=== PATIENT | female | born 1990 | race African-American/Black ===

== ENCOUNTER 2018-04-18 11:48 | Inpatient (IN) ==
[2018-04-18] MEDS: DEXTROSE 5% LACTATED RINGERS 1,000 ML IV SCH ×2 (12:49→18:12)
[2018-04-18] MEDS: ONDANSETRON 4 MG/2 ML VIAL IV SCH ×3 (12:49→23:47)
[2018-04-18] MEDS: METOCLOPRAMIDE 10 MG/2 ML VIAL IV SCH ×2 (12:51→21:13)
[2018-04-18 13:26] LABS: Apearance,Urine CLOUDY (Clear); Bacteria,Urine Many /HPF (Few); Bilirubin,Urine Small mg/dL (Negative); Blood, Urine Negative (Negative); Calcium Oxalate Crystals,Urine Moderate /HPF (Few); Glucose,Urine (UA) Negative (Negative); Ketones,Urine 5 mg/dL (Negative); Mucus,Urine Many /LPF (Occasional); Nitrite,Urine Negative (Negative); Protein,Urine 100 MG/DL; Squamous Epithelial Cell,Urine Few /HPF (0-10); Urine Color Amber (Yellow); Urine Specific Gravity 1.023 (1.001-1.035); WBC,Urine 15 /HPF (0-6)
[2018-04-18 13:27] LABS: Barbiturates Screen,Urine Negative (Negative); Benzodiazepines Screen,Urine Negative (Negative); Cannabinoid Screen,Urine Positive (Negative); Opiate Screen,Urine Negative (Negative); Phencyclidine Screen,Urine Negative (Negative)
[2018-04-18 13:37] LABS: Basophils % 0.2 % (0.0-0.8); Eosinophils # 0.1 10*3/uL (0.0-0.87); Eosinophils % 2.1 % (0.00-10.9); Hematocrit 33.4 VOL% (35.7-47.0); Hemoglobin 11.7 GM/DL (12.0-16.0); Immature Granulocytes % 0.7 %; Immature Granulocytes Absolute 0.03 #; Lymphocytes # 1.3 10*3/uL (1.4-4.0); Lymphocytes % 29.1 % (21.3-54.2); Mean Corpuscular Hemoglobin 31 PG (27-34); Mean Corpuscular Volume 88.1 FL (87-102); Mean Platelet Volume 9.2 FL (9.6-12.0); Monocytes # 0.4 10*3/uL (0.11-0.8); Neutrophils # 2.6 10*3/uL (1.4-7.4); Neutrophils % 58.9 % (38.7-73.9); Platelet Count 301 T/CUMM (130-400); Red Blood Count 3.79 MC/CUMM (3.8-5.5); Red Cell Distribution Width 13.1 % (9.3-17.3); White Blood Count 4.3 T/CUMM (4-12)
[2018-04-18 13:56] LABS: Bilirubin,Total 0.4 MG/DL (0.2-1.0); Calcium 8.3 MG/DL (8.5-10.1); Osmolality,Calculated 264.2 MOS/KG (273-304); Potassium 2.9 MMOL/L (3.5-5.1); Total Protein 6.9 G/DL (6.4-8.3)
[2018-04-18] MEDS: ALUMINUM/MAGNES/SIMETH MAX STR 30 ML UDCUP PO PRN (21:26)
[2018-04-19] MEDS: DEXTROSE 5% LACTATED RINGERS 1,000 ML IV SCH ×4 (01:32→22:17)
[2018-04-19] MEDS: METOCLOPRAMIDE 10 MG/2 ML VIAL IV SCH (04:00)
[2018-04-19] MEDS: ONDANSETRON 4 MG/2 ML VIAL IV SCH (06:39)
[2018-04-19] MEDS ORDERED: POTASSIUM CHLORIDE 20 MEQ TABLET PO SCH (14:00)
[2018-04-19] MEDS ORDERED: MAGNESIUM CITRATE 300 ML BOTTLE PO ONE (14:00)
[2018-04-19] MEDS ORDERED: POTASSIUM CHLORIDE 20 MEQ TABLET PO ONE (15:31)
[2018-04-19] MEDS ORDERED: ONDANSETRON 4 MG/2 ML VIAL ONE (18:57)
[2018-04-19] MEDS: ONDANSETRON 4 MG/2 ML VIAL IV PRN (19:00)
[2018-04-19] MEDS: ALUMINUM/MAGNES/SIMETH MAX STR 30 ML UDCUP PO PRN (20:48)
[2018-04-20] MEDS: ONDANSETRON 4 MG/2 ML VIAL IV PRN (02:09)
[2018-04-20] MEDS: ALUMINUM/MAGNES/SIMETH MAX STR 30 ML UDCUP PO PRN ×2 (02:59→07:01)
[2018-04-20] MEDS: DEXTROSE 5% LACTATED RINGERS 1,000 ML IV SCH (08:00)
[2018-04-20] MEDS ORDERED: POTASSIUM CHLORIDE 20 MEQ TABLET PO SCH (09:00)
[2018-04-20] MEDS ORDERED: PANTOPRAZOLE 40 MG VIAL IV SCH (09:00)
[2018-04-20] MEDS ORDERED: AMPICILLIN INJ 2,000 MG in SODIUM CHLORIDE 0.9% 100 ML IV ONE (09:18)
[2018-04-20] MEDS ORDERED: METOCLOPRAMIDE 10 MG TABLET PO PRN (09:40)
[2018-04-20 11:30] VITALS: BP 112/69
[2018-04-20] MEDS ORDERED: AMPICILLIN 500 MG CAPSULE PO SCH (21:00)
== END 2018-04-20 15:00 | disposition home health service (06) ==
LOC: N.OB
PROVIDERS: ADMIT Obstetrics & Gynecology; ATTEND Obstetrics & Gynecology

== ENCOUNTER 2018-05-22 07:24 | Inpatient (IN) ==
[2018-05-22] MEDS ORDERED: ONDANSETRON 4 MG/2 ML VIAL IV STA (07:42)
[2018-05-22] MEDS ORDERED: SODIUM CHLORIDE 0.9% 1,000 ML IV STA (07:42)
[2018-05-22 08:20] LABS: Apearance,Urine Slightly Hazy (Clear); Bacteria,Urine Occasional /HPF (Few); Bilirubin,Urine Negative (Negative); Blood, Urine Negative (Negative); Calcium 8.9 MG/DL (8.5-10.1); Glucose,Urine (UA) 50 mg/dL (Negative); Ketones,Urine 80 mg/dL (Negative); Mucus,Urine Many /LPF (Occasional); Nitrite,Urine Negative (Negative); Osmolality,Calculated 279.3 MOS/KG (273-304); Potassium 2.9 MMOL/L (3.5-5.1); Protein,Urine 100 MG/DL; RBC,Urine 6 /HPF (0-4); Squamous Epithelial Cell,Urine Occasional /HPF (0-10); Urine Specific Gravity 1.028 (1.001-1.035); WBC,Urine 10 /HPF (0-6)
[2018-05-22 08:23] LABS: Urine Color Yellow (Yellow)
[2018-05-22 08:36] LABS: Basophils % 0.3 % (0.0-0.8); Hematocrit 34.9 VOL% (35.7-47.0); Hemoglobin 11.7 GM/DL (12.0-16.0); Immature Granulocytes % 1.7 %; Immature Granulocytes Absolute 0.11 #; Lymphocytes # 0.8 10*3/uL (1.4-4.0); Lymphocytes % 12.7 % (21.3-54.2); Mean Corpuscular HGB Conc 33.5 GM/DL (32-36); Mean Corpuscular Hemoglobin 31 PG (27-34); Mean Corpuscular Volume 92.8 FL (87-102); Mean Platelet Volume 9.6 FL (9.6-12.0); Monocytes # 0.2 10*3/uL (0.11-0.8); Monocytes % 3.3 % (1.7-12.7); Neutrophils # 5.5 10*3/uL (1.4-7.4); Platelet Count 303 T/CUMM (130-400); Red Blood Count 3.76 MC/CUMM (3.8-5.5); Red Cell Distribution Width 11.8 % (9.3-17.3); White Blood Count 6.6 T/CUMM (4-12)
[2018-05-22] MEDS ORDERED: ALUM/MAG/SIMETH/LIDO VISC 1:1 30 ML BOTTLE PO ONE (08:55)
[2018-05-22] MEDS ORDERED: ALUM/MAG/SIMETH/LIDO VISC 1:1 30 ML BOTTLE PO STA (09:00)
[2018-05-22 09:59] LABS: Apearance,Urine CLEAR (Clear); Bilirubin,Urine Negative (Negative); Blood, Urine Negative (Negative); Glucose,Urine (UA) 50 mg/dL (Negative); Ketones,Urine 80 mg/dL (Negative); Mucus,Urine Many /LPF (Occasional); Nitrite,Urine Negative (Negative); Protein,Urine 100 MG/DL; RBC,Urine 9 /HPF (0-4); Squamous Epithelial Cell,Urine Occasional /HPF (0-10); Urine Color Yellow (Yellow); Urine Specific Gravity 1.029 (1.001-1.035); WBC,Urine 2 /HPF (0-6)
[2018-05-22] MEDS ORDERED: IBUPROFEN 800 MG TABLET PO PRN (11:43)
[2018-05-22] MEDS ORDERED: BISACODYL 10 MG SUPP RECTAL PRN (11:43)
[2018-05-22] MEDS ORDERED: ACETAMINOPHEN 325 MG TABLET PO PRN (11:43)
[2018-05-22] MEDS ORDERED: MAGNESIUM HYDROXIDE SUSP 30 ML UDCUP PO PRN (11:43)
[2018-05-22] MEDS: PROMETHAZINE 25 MG/1 ML VIAL IM PRN ×2 (12:00→21:03)
[2018-05-22] MEDS: POTASSIUM CHLORIDE INJ 20 MEQ in LACTATED RINGERS 1,000 ML IV SCH ×3 (12:32→22:17)
[2018-05-22] MEDS: POTASSIUM CHLORIDE 20 MEQ TABLET PO SCH ×2 (13:27→22:12)
[2018-05-22] MEDS: PANTOPRAZOLE 40 MG VIAL IV SCH ×2 (14:47→23:06)
[2018-05-22] MEDS: METOCLOPRAMIDE 10 MG/2 ML VIAL IV SCH ×2 (16:15→23:08)
[2018-05-22] MEDS ORDERED: BETAMETH SODIUM PHOS/ACETATE 30 MG/5 ML VIAL IM SCH (17:00)
[2018-05-22] MEDS: ONDANSETRON 4 MG/2 ML VIAL IV PRN (18:32)
[2018-05-22] MEDS: DOCUSATE SODIUM 100 MG CAPSULE PO SCH (22:23)
[2018-05-23] MEDS: POTASSIUM CHLORIDE INJ 20 MEQ in LACTATED RINGERS 1,000 ML IV SCH ×4 (04:22→22:19)
[2018-05-23] MEDS: METOCLOPRAMIDE 10 MG/2 ML VIAL IV SCH ×3 (06:24→22:23)
[2018-05-23] MEDS ORDERED: BETAMETH SODIUM PHOS/ACETATE 30 MG/5 ML VIAL IM ONE (09:00)
[2018-05-23] MEDS: PANTOPRAZOLE 40 MG VIAL IV SCH ×2 (09:27→21:30)
[2018-05-23] MEDS: DOCUSATE SODIUM 100 MG CAPSULE PO SCH ×2 (09:32→21:32)
[2018-05-23] MEDS: POTASSIUM CHLORIDE 20 MEQ TABLET PO SCH ×2 (09:32→21:32)
[2018-05-23] MEDS: ONDANSETRON 4 MG/2 ML VIAL IV PRN ×2 (12:11→21:28)
[2018-05-24] MEDS: POTASSIUM CHLORIDE INJ 20 MEQ in LACTATED RINGERS 1,000 ML IV SCH ×2 (04:10→10:03)
[2018-05-24 06:34] LABS: Albumin 2.2 G/DL (3.4-5.0); Bilirubin,Total 0.4 MG/DL (0.2-1.0); Calcium 8.5 MG/DL (8.5-10.1); Osmolality,Calculated 273.5 MOS/KG (273-304); Potassium 4.2 MMOL/L (3.5-5.1); Total Protein 6.3 G/DL (6.4-8.3)
[2018-05-24] MEDS: METOCLOPRAMIDE 10 MG/2 ML VIAL IV SCH ×2 (08:01→15:55)
[2018-05-24] MEDS: PANTOPRAZOLE 40 MG VIAL IV SCH (09:26)
[2018-05-24] MEDS: DOCUSATE SODIUM 100 MG CAPSULE PO SCH (09:29)
[2018-05-24] MEDS: POTASSIUM CHLORIDE 20 MEQ TABLET PO SCH (09:29)
[2018-05-24 11:20] VITALS: BP 109/65
[2018-05-24] MEDS ORDERED: INFLUENZA VIRUS VACCINE 0.5 ML SYRINGE IM ONE (14:30)
== END 2018-05-24 15:15 | disposition home health service (06) | DRG 566 ==
LOC: N.ED 07:24 → N.EDINP 10:40 → N.OB 10:55
PROVIDERS: ADMIT Obstetrics & Gynecology; ATTEND Obstetrics & Gynecology

== ENCOUNTER 2018-09-16 03:36 | Inpatient (IN) ==
[2018-09-16] MEDS ORDERED: ONDANSETRON 4 MG/2 ML VIAL IV PRN ×2 (04:11→06:28)
[2018-09-16] MEDS ORDERED: MEPERIDINE 50 MG/1 ML VIAL IM PRN (04:11)
[2018-09-16] MEDS ORDERED: BUTORPHANOL 1 MG/ML VIAL IV PRN (04:11)
[2018-09-16] MEDS ORDERED: AMPICILLIN 2,000 MG VIAL ONE (04:23)
[2018-09-16] MEDS ORDERED: SODIUM CHLORIDE 0.9% 100 ML IV ONE (04:23)
[2018-09-16] MEDS ORDERED: OXYTOCIN/LR 20 UNIT/1,000 ML BAG IV SCH (04:30)
[2018-09-16] MEDS ORDERED: AMPICILLIN INJ 2,000 MG in SODIUM CHLORIDE 0.9% 100 ML IV SCH (04:30)
[2018-09-16] MEDS ORDERED: LACTATED RINGERS 1,000 ML IV SCH (04:30)
[2018-09-16] MEDS ORDERED: ePHEDrine 50 MG/ML AMP IV PRN (04:44)
[2018-09-16] MEDS ORDERED: PROMETHAZINE 25 MG/1 ML VIAL IM PRN (04:44)
[2018-09-16] MEDS ORDERED: diphenhydrAMINE 50 MG/1 ML VIAL IV PRN ×2 (04:44)
[2018-09-16] MEDS ORDERED: NALOXONE 0.4 MG/ML VIAL IV PRN (04:44)
[2018-09-16] MEDS ORDERED: hydrOXYzine HCL 25 MG/1 ML VIAL IM PRN (04:44)
[2018-09-16] MEDS ORDERED: CITRIC ACID/SODIUM CITRATE 30 ML UDCUP PO PRN (04:45)
[2018-09-16] MEDS ORDERED: FAMOTIDINE 20 MG/2 ML VIAL IV PRN (04:45)
[2018-09-16 04:52] LABS: Basophils % 0.2 % (0.0-0.8); Eosinophils # 0.1 10*3/uL (0.0-0.87); Eosinophils % 0.9 % (0.00-10.9); Hematocrit 36.2 VOL% (35.7-47.0); Hemoglobin 11.1 GM/DL (12.0-16.0); Immature Granulocytes % 2.1 %; Immature Granulocytes Absolute 0.14 #; Lymphocytes # 1.5 10*3/uL (1.4-4.0); Lymphocytes % 21.9 % (21.3-54.2); Mean Corpuscular HGB Conc 30.7 GM/DL (32-36); Mean Corpuscular Hemoglobin 26 PG (27-34); Mean Corpuscular Volume 84.8 FL (87-102); Mean Platelet Volume 10.7 FL (9.6-12.0); Monocytes # 0.8 10*3/uL (0.11-0.8); Monocytes % 11.5 % (1.7-12.7); Neutrophils # 4.2 10*3/uL (1.4-7.4); Neutrophils % 63.4 % (38.7-73.9); Platelet Count 211 T/CUMM (130-400); Red Blood Count 4.27 MC/CUMM (3.8-5.5); Red Cell Distribution Width 13.2 % (9.3-17.3); White Blood Count 6.6 T/CUMM (4-12)
[2018-09-16 04:54] LABS: Apearance,Urine CLEAR (Clear); Bilirubin,Urine Negative (Negative); Blood, Urine Negative (Negative); Glucose,Urine (UA) Negative (Negative); Ketones,Urine Negative (Negative); Mucus,Urine Few /LPF (Occasional); Nitrite,Urine Negative (Negative); Protein,Urine Negative; RBC,Urine 1 /HPF (0-4); Squamous Epithelial Cell,Urine Occasional /HPF (0-10); Urine Color Yellow (Yellow); Urine Specific Gravity 1.014 (1.001-1.035); Urine Urobilinogen < 2.0 EU/DL (0.2-1.0); WBC,Urine <1 /HPF (0-6)
[2018-09-16] MEDS ORDERED: METHYLERGONOVINE 0.2 MG/1 ML AMP ONE (04:59)
[2018-09-16] MEDS ORDERED: OXYTOCIN/LR 20 UNIT/1,000 ML BAG IV ONE ×2 (04:59→06:28)
[2018-09-16] MEDS ORDERED: TRANEXAMIC ACID 1,000 MG/10 ML VIAL ONE (04:59)
[2018-09-16] MEDS ORDERED: CARBOPROST TROMETHAMINE 250 MCG/ML AMP IM ONE (04:59)
[2018-09-16] MEDS ORDERED: miSOPROStol 200 MCG TABLET ONE (04:59)
[2018-09-16] MEDS ORDERED: fentaNYL 2 MCG/ROPIV 0.2% EPID 100 ML EPIDURAL SCH (05:00)
[2018-09-16 05:05] LABS: Barbiturates Screen,Urine Negative (Negative); Benzodiazepines Screen,Urine Negative (Negative); Cannabinoid Screen,Urine Negative (Negative); Opiate Screen,Urine Negative (Negative); Phencyclidine Screen,Urine Negative (Negative)
[2018-09-16 05:08] LABS: Alanine Aminotransferase 20 U/L (13-56); Alkaline Phosphatase 166 U/L (45-117); Aspartate Amino Transferase 23 U/L (0-37); Bilirubin,Total < 0.39 MG/DL (0.2-1.0); Blood Urea Nitrogen 5 MG/DL (7-18); Calcium 8.9 MG/DL (8.5-10.1); Glucose 98 MG/DL (74-106); Osmolality,Calculated 271.7 MOS/KG (273-304); Potassium 3.8 MMOL/L (3.5-5.1); Sodium 138 MMOL/L (136-145); Total Protein 7.6 G/DL (6.4-8.3)
[2018-09-16] MEDS ORDERED: METHYLERGONOVINE 0.2 MG/1 ML AMP IM PRN (05:30)
[2018-09-16] MEDS ORDERED: OXYTOCIN/LR 20 UNIT/1,000 ML BAG IV PRN (05:40)
[2018-09-16] MEDS ORDERED: LIDOCAINE 1% 50 ML VIAL ONE (05:57)
[2018-09-16 06:03] LABS: Cord Venous Blood HCO3 22.3 MMOL/L; Cord Venous Blood PCO2 41.7 MMHG; Cord Venous Blood PO2 31.9
[2018-09-16] MEDS ORDERED: ACETAMINOPHEN 325 MG TABLET PO PRN (06:28)
[2018-09-16] MEDS ORDERED: RHO(D) IMMUNE GLOBULIN 300 MCG SYRINGE IM ONE (06:28)
[2018-09-16] MEDS ORDERED: BENZOCAINE 20%/MENTHOL 0.5% SPRAY 56 GM CAN TOP PRN (06:28)
[2018-09-16] MEDS ORDERED: BISACODYL 10 MG SUPP RECTAL PRN (06:28)
[2018-09-16] MEDS ORDERED: WITCH HAZEL PADS 100/JAR TOP PRN (06:28)
[2018-09-16] MEDS ORDERED: MEASLES/MUMPS/RUBELLA VACCINE 0.5 ML VIAL SUBCUT ONE (06:28)
[2018-09-16] MEDS ORDERED: DIPH/TET/ACEL PERT BOOSTER VACCINE 0.5 ML VIAL IM ONE (06:28)
[2018-09-16] MEDS ORDERED: oxyCODONE/ACETAMINOPHEN 5-325 MG TABLET PO PRN (06:28)
[2018-09-16] MEDS ORDERED: HYDROCORTISONE 2.5% RECTAL CREAM 30 GM TUBE TOP PRN (06:28)
[2018-09-16] MEDS ORDERED: LANOLIN 50% CREAM 0.3 OZ TUBE TOP PRN (06:28)
[2018-09-16] MEDS: oxyCODONE/ACETAMINOPHEN 5-325 MG TABLET PO PRN (09:18)
[2018-09-16] MEDS: METHYLERGONOVINE 0.2 MG TABLET PO SCH ×2 (11:30→21:33)
[2018-09-16] MEDS ORDERED: diphenhydrAMINE CAP 25 MG CAPSULE PO PRN (12:51)
[2018-09-16] MEDS: DOCUSATE SODIUM 100 MG CAPSULE PO SCH ×2 (13:02→21:30)
[2018-09-16] MEDS ORDERED: METHYLERGONOVINE 0.2 MG TABLET PO SCH (14:00)
[2018-09-16] MEDS: hydroCHLOROthiazide 25 MG TABLET PO SCH (16:03)
[2018-09-16] MEDS: IBUPROFEN 800 MG TABLET PO PRN (21:32)
[2018-09-17] MEDS: METHYLERGONOVINE 0.2 MG TABLET PO SCH (05:45)
[2018-09-17 06:10] LABS: Basophils % 0.2 % (0.0-0.8); Eosinophils # 0.1 10*3/uL (0.0-0.87); Hematocrit 26.9 VOL% (35.7-47.0); Hemoglobin 8.4 GM/DL (12.0-16.0); Immature Granulocytes Absolute 0.08 #; Lymphocytes # 1.5 10*3/uL (1.4-4.0); Lymphocytes % 18.7 % (21.3-54.2); Mean Corpuscular HGB Conc 31.2 GM/DL (32-36); Mean Corpuscular Hemoglobin 26 PG (27-34); Mean Corpuscular Volume 83.8 FL (87-102); Monocytes # 0.8 10*3/uL (0.11-0.8); Monocytes % 9.5 % (1.7-12.7); Neutrophils # 5.7 10*3/uL (1.4-7.4); Neutrophils % 69.6 % (38.7-73.9); Platelet Count 164 T/CUMM (130-400); Red Blood Count 3.21 MC/CUMM (3.8-5.5); Red Cell Distribution Width 13.2 % (9.3-17.3); White Blood Count 8.2 T/CUMM (4-12)
[2018-09-17] MEDS: hydroCHLOROthiazide 25 MG TABLET PO SCH (08:32)
[2018-09-17] MEDS: DOCUSATE SODIUM 100 MG CAPSULE PO SCH ×3 (08:33→21:24)
[2018-09-17] MEDS: IBUPROFEN 800 MG TABLET PO PRN (15:31)
[2018-09-17] MEDS: PANTOPRAZOLE 40 MG TABLET PO SCH ×2 (17:47→21:25)
[2018-09-17] MEDS: oxyCODONE/ACETAMINOPHEN 5-325 MG TABLET PO PRN (19:42)
[2018-09-17] MEDS ORDERED: diphenhydrAMINE CAP 25 MG CAPSULE PO PRN (23:16)
[2018-09-18 08:06] VITALS: BP 135/93
[2018-09-18] MEDS: hydroCHLOROthiazide 25 MG TABLET PO SCH (10:13)
[2018-09-18] MEDS: DOCUSATE SODIUM 100 MG CAPSULE PO SCH (10:13)
[2018-09-18] MEDS: PANTOPRAZOLE 40 MG TABLET PO SCH (10:13)
[2018-09-18 13:40] LABS: HIV Antigen/Antibody Result Nonreactive (Nonreactive); Hepatitis B Surface Ag Quant 0.44 Index; Hepatitis B Surface Ag Result Negative (Negative); Rubella Antibody IgG 39.5 IU/ML
== END 2018-09-18 13:25 | disposition home or self-care (01) | DRG 560 ==
LOC: N.LDOUT 03:36 → N.LD 03:38 → N.OB 12:00
PROVIDERS: ADMIT Obstetrics & Gynecology; ATTEND Obstetrics & Gynecology